=== PATIENT | male | born 1985 | race Hispanic/Latino ===

== ENCOUNTER 2022-02-09 12:34 | Inpatient (IN) | payer OTHER ==
[2022-02-09] MEDS ORDERED: Sterile Water 10 ML ONE (12:47)
[2022-02-09] MEDS ORDERED: Vecuronium 10 MG VIAL ONE (12:47)
[2022-02-09 12:53] LABS: #Basophils 0.1 thou/uL (0.0-0.2); #Eosinphils 0.6 thou/uL (0.0-0.7); #Lymphocytes 5.9 thou/uL (1.20-3.40); #Neutrophils 9.7 thou/uL (1.40-6.50); %Basophils 0.7 % (0.0-1.0); %Eosinophils 3.3 % (0.0-10.0); %Lymphocytes 34.1 % (21.0-51.0); %Monocytes 5.6 % (0.0-10.0); %Neutrophils 56.2 % (42.0-75.0); Hemoglobin 16.4 g/dL (14.0-18.0); Mean Corpuscular HGB CONC 33.1 g/dL (32.0-36.0); Mean Corpuscular Hemoglobin 29.8 pg (27.0-31.0); Mean Corpuscular Volume 90.1 fL (78.0-98.0); Mean Platelet Volume 7.3 fL (7.4-10.4); Platelet Count 311 thou/uL (130-400); Red Blood Cell (RBC) Count 5.49 mill/uL (4.70-6.10); White Blood Cell (WBC) Count 17.3 thou/uL (4.8-10.8)
[2022-02-09 13:04] LABS: PTT 29.8 sec (22.9-36.1); Prothrombin Time 13.2 sec (12.0-14.7)
[2022-02-09] MEDS ORDERED: Promethazine HCl 25 MG/ML VIAL IM PRN (13:17)
[2022-02-09] MEDS ORDERED: hydrALAZINE 20 MG/ML VIAL SLOW IVP PRN (13:17)
[2022-02-09] MEDS ORDERED: Ondansetron PF 4 MG/2 ML Vial IVP PRN (13:17)
[2022-02-09] MEDS ORDERED: Dextrose 5% in Water 1,000 ML IV PRN (13:17)
[2022-02-09] MEDS ORDERED: HumaLOG 300 UNITS/3 ML VIAL SC PRN (13:17)
[2022-02-09] MEDS ORDERED: Dextrose 50% Abboject 50 ML SYRINGE SLOW IVP PRN (13:17)
[2022-02-09] MEDS ORDERED: fentaNYL Citrate/PF 2,000 MCG in Sodium Chloride 0.9% 60 ML IV PRN (13:23)
[2022-02-09 13:27] LABS: Acetaminophen Less than 10.0 mcg/mL (10.0-30.0); Alcohol Less than 10 mg/dL (Less than 10); Salicylate Less than 8.0 mg/dL (15.0-30.0)
[2022-02-09 13:28] LABS: Bacteria/HPF None Seen HPF (None Seen); Bilirubin Negative (Negative); Blood, Urine 3+ (Negative); Clarity Turbid (Clear); Glucose, Urine (Dipstick) Normal (Negative); Ketone, Urine Negative (Negative); Leukocyte Negative Leu/uL (Negative); Nitrite Negative (Negative); Protein, Urine (Dipstick) 200 mg/dL (Neg-Trace); Specific Gravity, Urine 1.022 (1.002-1.036); Squamous Epithelial None Seen HPF (0-3); Urobilinogen Normal mg/dL (Less than 2); WBC/HPF 0-3 HPF (0-3)
[2022-02-09] MEDS ORDERED: Vecuronium 10 MG VIAL IVP SCH (13:30)
[2022-02-09] MEDS ORDERED: Midazolam HCl 2 mg/2 ml Vial SLOW IVP SCH (13:30)
[2022-02-09 13:35] LABS: RBC/HPF 0-3 HPF (0-3); Sperm/HPF 2+ HPF (None Seen)
[2022-02-09 13:35] LABS: Amphetamine Not Detected (NotDetected); Barbiturates Screen Not Detected (NotDetected); Benzodiazepine Screen Not Detected (NotDetected); Cocaine Metabolite Screen Not Detected (NotDetected); Methadone Not Detected (NotDetected); Methamphetamine Not Detected (NotDetected); Opiate Screen Not Detected (NotDetected); Oxycodone Screen Not Detected (NotDetected); Phencyclidine (PCP) Not Detected (NotDetected); THC/Cannabinoid Screen Not Detected (NotDetected); Tricyclic Screen Not Detected (NotDetected)
[2022-02-09 13:38] LABS: ALT (SGPT) 39 U/L (8-55); AST (SGOT) 61 U/L (5-34); Albumin 5.2 g/dL (3.5-5.0); Alkaline Phosphatase 89 U/L (40-110); Anion Gap 23 mmol/L (10-20); BUN (Urea Nitrogen) 14 mg/dL (8.9-20.6); Bilirubin, Total 1.2 mg/dL (0.2-1.2); CK (CPK) 1539 U/L (30-200); Calc. Creatinine Clearance 0 mL/min (70-130); Calcium 9.7 mg/dL (7.8-10.44); Carbon Dioxide 18 mmol/L (22-29); Chloride 106 mmol/L (98-107); Glucose 173 mg/dL (70-105); Lipase 32 U/L (8-78); Potassium 4.1 mmol/L (3.5-5.1); Protein, Total 8.2 g/dL (6.0-8.3); Sodium 142 mmol/L (136-145)
[2022-02-09] MEDS ORDERED: Fentanyl BOLUS 250 ML IVPB PRN (14:00)
[2022-02-09] MEDS ORDERED: fentaNYL Citrate/PF 2,000 MCG in Sodium Chloride 0.9% 60 ML IV SCH (14:00)
[2022-02-09] MEDS ORDERED: Dexmedetomidine In 0.9 % NaCl 100 ML IVPB SCH (14:15)
[2022-02-09 14:17] LABS: Magnesium 1.9 mg/dL (1.6-2.6); Phosphorus 4.5 mg/dL (2.3-4.7)
[2022-02-09] MEDS: Sodium Chloride 0.9% 1,000 ML IV SCH ×2 (14:34→20:36)
[2022-02-09 15:22] LABS: Actual Bicarbonate (HCO3a) 23.4 mEq/L (22-28); Base Excess (BEa) -1.6 mEq/L (-2.0 to +3.0); CO2 Tension 40.6 mmHg (35.0-45.0); Calcium, Ionized (arterial) 1.15 mmol/L (1.12-1.30); Hemoglobin (Hb) 14.9 g/dL (14.0-18.0); O2 Tension (PaO2), arterial 153.5 mmHg (80.0-100.0); Potassium - ABG Lab 3.29 mmol/L (3.70-5.30); pH, Arterial 7.38 (7.35-7.45)
[2022-02-09 15:23] LABS: Puncture Site LRA
[2022-02-09] MEDS: Silver Sulfadiazine 50 GM JAR TP PRN (17:27)
[2022-02-09] MEDS ORDERED: Sodium Chloride 0.9% 1,000 ML IV SCH (18:30)
[2022-02-09] MEDS: Acetaminophen 500 MG TAB PO SCH (20:34)
[2022-02-09] MEDS: Famotidine/PF 20 mg/2ml Vial SLOW IVP SCH (20:34)
[2022-02-09 21:58] LABS: Amphetamine Not Detected (NotDetected); Barbiturates Screen Not Detected (NotDetected); Benzodiazepine Screen Not Detected (NotDetected); Cocaine Metabolite Screen Not Detected (NotDetected); Methadone Not Detected (NotDetected); Methamphetamine Not Detected (NotDetected); Opiate Screen Not Detected (NotDetected); Oxycodone Screen Not Detected (NotDetected); Phencyclidine (PCP) Not Detected (NotDetected); THC/Cannabinoid Screen Not Detected (NotDetected); Tricyclic Screen Not Detected (NotDetected)
[2022-02-10] MEDS: Acetaminophen 500 MG TAB PO SCH ×2 (02:32→08:35)
[2022-02-10 04:55] LABS: #Eosinphils 0.1 thou/uL (0.0-0.7); #Lymphocytes 1.7 thou/uL (1.20-3.40); #Monocytes 0.9 thou/uL (0.11-0.59); #Neutrophils 7.6 thou/uL (1.40-6.50); %Basophils 0.3 % (0.0-1.0); %Eosinophils 1.1 % (0.0-10.0); %Lymphocytes 16.5 % (21.0-51.0); %Monocytes 8.5 % (0.0-10.0); %Neutrophils 73.6 % (42.0-75.0); Hemoglobin 12.9 g/dL (14.0-18.0); Mean Corpuscular HGB CONC 33.6 g/dL (32.0-36.0); Mean Corpuscular Hemoglobin 30.5 pg (27.0-31.0); Mean Corpuscular Volume 90.6 fL (78.0-98.0); Mean Platelet Volume 7.2 fL (7.4-10.4); Platelet Count 173 thou/uL (130-400); RBC Distribution Width 11.9 % (11.5-14.5); Red Blood Cell (RBC) Count 4.24 mill/uL (4.70-6.10); White Blood Cell (WBC) Count 10.4 thou/uL (4.8-10.8)
[2022-02-10 04:58] LABS: INR-International Normal Ratio 1.1; PTT 37.2 sec (22.9-36.1); Prothrombin Time 14.4 sec (12.0-14.7)
[2022-02-10 05:21] LABS: Phosphorus 2.5 mg/dL (2.3-4.7)
[2022-02-10 05:22] LABS: Anion Gap 10 mmol/L (10-20); BUN (Urea Nitrogen) 8 mg/dL (8.9-20.6); Calc. Creatinine Clearance 211 mL/min (70-130); Calcium 8.3 mg/dL (7.8-10.44); Carbon Dioxide 25 mmol/L (22-29); Chloride 109 mmol/L (98-107); Glucose 93 mg/dL (70-105); Magnesium 1.8 mg/dL (1.6-2.6); Potassium 3.6 mmol/L (3.5-5.1); Sodium 140 mmol/L (136-145)
[2022-02-10 05:28] VITALS: BMI 32.3
[2022-02-10 05:29] LABS: CK (CPK) 10001 U/L (30-200)
[2022-02-10 06:03] LABS: Lactic Acid 0.8 mmol/L (0.5-2.2)
[2022-02-10] MEDS ORDERED: PHOS-NAK 1 PKT PACK PO SCH (08:00)
[2022-02-10] MEDS ORDERED: Potassium Chloride 20 MEQ TAB PO SCH (08:00)
[2022-02-10] MEDS ORDERED: Magnesium 2 GM/50 ML(in water) 2 GM in Premix Bag 1 BAG IVPB SCH (08:00)
[2022-02-10] MEDS: Famotidine/PF 20 mg/2ml Vial SLOW IVP SCH ×2 (08:31→21:22)
[2022-02-10] MEDS: Sodium Chloride 0.9% 1,000 ML IV SCH ×3 (08:37→19:49)
[2022-02-10] MEDS: Acetaminophen 325 MG TAB PO SCH ×3 (10:39→21:17)
[2022-02-10] MEDS: Acetaminophen/Codeine 30-300mg Tablet PO PRN ×2 (11:08→17:37)
[2022-02-10] MEDS: Cyclobenzaprine 10 MG TAB PO PRN ×2 (11:08→19:52)
[2022-02-10] MEDS: Gabapentin 100 MG CAP PO SCH ×2 (15:11→21:18)
[2022-02-10] MEDS: Silver Sulfadiazine 50 GM JAR TP PRN (20:08)
[2022-02-10] MEDS: Senokot S 8.6-50 MG TAB PO SCH (21:18)
[2022-02-11] MEDS: Sodium Chloride 0.9% 1,000 ML IV SCH ×3 (02:07→18:25)
[2022-02-11] MEDS: Acetaminophen 325 MG TAB PO SCH ×3 (05:08→18:26)
[2022-02-11 05:26] LABS: #Eosinphils 0.4 thou/uL (0.0-0.7); #Lymphocytes 1.9 thou/uL (1.20-3.40); #Monocytes 0.7 thou/uL (0.11-0.59); %Basophils 0.3 % (0.0-1.0); %Eosinophils 4.7 % (0.0-10.0); %Monocytes 9.2 % (0.0-10.0); %Neutrophils 61.8 % (42.0-75.0); Hemoglobin 12.6 g/dL (14.0-18.0); Mean Corpuscular HGB CONC 32.1 g/dL (32.0-36.0); Mean Corpuscular Hemoglobin 29.2 pg (27.0-31.0); Mean Corpuscular Volume 90.9 fL (78.0-98.0); Mean Platelet Volume 7.5 fL (7.4-10.4); Platelet Count 170 thou/uL (130-400); Red Blood Cell (RBC) Count 4.31 mill/uL (4.70-6.10)
[2022-02-11 05:41] LABS: Anion Gap 10 mmol/L (10-20); BUN (Urea Nitrogen) 8 mg/dL (8.9-20.6); Calc. Creatinine Clearance 213 mL/min (70-130); Calcium 8.1 mg/dL (7.8-10.44); Carbon Dioxide 26 mmol/L (22-29); Chloride 110 mmol/L (98-107); Estimated GFR 119; Glucose 85 mg/dL (70-105); Magnesium 1.9 mg/dL (1.6-2.6); Phosphorus 2.4 mg/dL (2.3-4.7); Potassium 3.8 mmol/L (3.5-5.1); Sodium 142 mmol/L (136-145)
[2022-02-11 06:09] LABS: CK (CPK) 12029 U/L (30-200)
[2022-02-11] MEDS: Gabapentin 100 MG CAP PO SCH ×2 (08:01→15:49)
[2022-02-11] MEDS: Famotidine/PF 20 mg/2ml Vial SLOW IVP SCH (08:02)
[2022-02-11] MEDS: Senokot S 8.6-50 MG TAB PO SCH (08:02)
[2022-02-11] MEDS: Acetaminophen/Codeine 30-300mg Tablet PO PRN ×2 (08:06→15:48)
[2022-02-11] MEDS ORDERED: Polyethylene Glycol 3350 17 GM Packet PO SCH (09:00)
[2022-02-11] MEDS: Cyclobenzaprine 10 MG TAB PO PRN (11:00)
[2022-02-11] MEDS ORDERED: traMADol HCl 50 MG TAB PO SCH (12:15)
[2022-02-11 15:46] VITALS: BP 134/89; TEMP 98.4
== END 2022-02-11 18:05 | disposition home or self-care (01) | DRG 928 ==
LOC: ERS 12:34 → CCU 12:45 → SJJU 02-10 17:58
PROVIDERS: ADMIT Surgery; ATTEND Surgery
PROC: 5A1935Z Respiratory Ventilation, Less than 24 Consecutive Hours (ICD-10-PCS; principal; 2022-02-09)
PROC: 02HV33Z Insertion of Infusion Device into Superior Vena Cava, Percutaneous Approach (ICD-10-PCS; 2022-02-09)
PROC: 0B918ZZ Drainage of Trachea, Via Natural or Artificial Opening Endoscopic (ICD-10-PCS; 2022-02-09)
PROC: 3E0G76Z Introduction of Nutritional Substance into Upper GI, Via Natural or Artificial Opening (ICD-10-PCS; 2022-02-09)
DX: T22.221A Burn of second degree of right elbow, initial encounter (principal); J96.00 Acute respiratory failure, unspecified whether with hypoxia or hypercapnia; I46.8 Cardiac arrest due to other underlying condition; T31.11 Burns involving 10-19% of body surface with 10-19% third degree burns; E87.2 Acidosis; T75.4XXA Electrocution, initial encounter; Z20.822 Contact with and (suspected) exposure to COVID-19; T79.6XXA Traumatic ischemia of muscle, initial encounter; F17.210 Nicotine dependence, cigarettes, uncomplicated; W85.XXXA Exposure to electric transmission lines, initial encounter; T21.24XA Burn of second degree of lower back, initial encounter; T25.221A Burn of second degree of right foot, initial encounter; T21.21XA Burn of second degree of chest wall, initial encounter; Z90.89 Acquired absence of other organs; Y92.22 Religious institution as the place of occurrence of the external cause; Z23 Encounter for immunization
CPT/HCPCS: 31624; 36415; 36600; 43762; 51701; 70450; 71045; 72072; 72100; 72125; 80048; 80053; 80306; 80307; 81003; 81015; 82550; 82805; 83605; 83690; 83735; 83880; 84100; 84146; 84484; 85025; 85610; 85730; 86850; 86900; 86901; 90471; 93005; 94002; 94640; 96365; 96375; 96376; 97139; G0390; J2405; J3475; J3490; J7050; J7620; P9045; S0028; U0003; U0005

== ENCOUNTER 2022-04-21 12:59 | Outpatient (CLI) | payer OTHER | END 2022-04-21 13:00 | disposition home or self-care (01) | LOC: SCSMRI 12:59 | PROVIDERS: ATTEND Family Medicine | DX: M25.511 Pain in right shoulder (principal); T75.4XXA Electrocution, initial encounter; S43.004A Unspecified dislocation of right shoulder joint, initial encounter; S43.431A Superior glenoid labrum lesion of right shoulder, initial encounter; S46.911A Strain of unspecified muscle, fascia and tendon at shoulder and upper arm level, right arm, initial encounter ==

== ENCOUNTER 2022-06-15 16:04 | Outpatient (CLI) | payer SELFPAY ==
[2022-06-15 16:48] LABS: #Basophils 0.1 10x3/uL (0.0-0.2); #Eosinphils 0.5 10x3/uL (0.0-0.5); #Monocytes 0.7 10x3/uL (0.0-1.1); #Neutrophils 5.3 10x3/uL (1.5-8.4); %Basophils 0.9 % (0.0-2.0); %Monocytes 7.8 % (0.0-10.0); Hemoglobin 16.1 g/dL (13.5-17.5); Mean Corpuscular HGB CONC 35.5 g/dL (32.0-36.0); Mean Corpuscular Hemoglobin 29.4 pg (27.0-33.0); Mean Corpuscular Volume 82.8 fl (81.2-95.1); Mean Platelet Volume 9.4 fl (7.4-10.4); Platelet Count 316 10x3/uL (150-450); RBC Distribution Width 11.9 % (11.5-14.5); Red Blood Cell (RBC) Count 5.47 10x6/uL (4.32-5.72); White Blood Cell (WBC) Count 9.1 10x3/uL (3.5-10.5)
== END 2022-06-15 16:05 | disposition home or self-care (01) ==
LOC: LABBT 16:04
PROVIDERS: ATTEND Orthopaedic Surgery
DX: Z01.812 Encounter for preprocedural laboratory examination (principal)
CPT/HCPCS: 85025

== ENCOUNTER 2022-08-18 15:57 | Outpatient (CLI) | payer SELFPAY ==
[2022-08-18 16:44] LABS: #Basophils 0.1 10x3/uL (0.0-0.2); #Eosinphils 0.4 10x3/uL (0.0-0.5); #Monocytes 0.9 10x3/uL (0.0-1.1); %Basophils 0.8 % (0.0-2.0); %Eosinophils 3.4 % (0.0-6.0); %Lymphocytes 30.6 % (18.0-47.0); %Monocytes 8.5 % (0.0-10.0); %Neutrophils 56.3 % (40.0-75.0); Hemoglobin 15.1 g/dL (13.5-17.5); Mean Corpuscular HGB CONC 35.2 g/dL (32.0-36.0); Mean Corpuscular Hemoglobin 29.7 pg (27.0-33.0); Mean Corpuscular Volume 84.4 fl (81.2-95.1); Mean Platelet Volume 9.5 fl (7.4-10.4); Platelet Count 313 10x3/uL (150-450); RBC Distribution Width 12.9 % (11.5-14.5); Red Blood Cell (RBC) Count 5.08 10x6/uL (4.32-5.72); White Blood Cell (WBC) Count 10.6 10x3/uL (3.5-10.5)
== END 2022-08-18 15:58 | disposition home or self-care (01) ==
LOC: LABBT 15:57
PROVIDERS: ATTEND Orthopaedic Surgery
DX: Z01.812 Encounter for preprocedural laboratory examination (principal); S46.811A Strain of other muscles, fascia and tendons at shoulder and upper arm level, right arm, initial encounter; S46.211A Strain of muscle, fascia and tendon of other parts of biceps, right arm, initial encounter
CPT/HCPCS: 85025

== ENCOUNTER 2022-08-20 06:50 | Day surgery (SDC) | payer OTHER ==
[2022-08-19 15:14] VITALS: BMI 33.5
[2022-08-20] MEDS ORDERED: Midazolam HCl 2 mg/2 ml Vial ONE (07:48)
[2022-08-20] MEDS ORDERED: Fentanyl 100 MCG/2 ML VIAL ONE ×3 (07:48→12:02)
[2022-08-20] MEDS ORDERED: Bupivacaine PF 0.5% 30 ML VIAL ONE ×2 (07:48→09:43)
[2022-08-20] MEDS ORDERED: Acetaminophen 500 MG TAB ONE (09:07)
[2022-08-20] MEDS ORDERED: Fentanyl 250 MCG/5 ML VIAL ONE (09:28)
[2022-08-20] MEDS ORDERED: HYDROmorphone 0.5 MG/0.5 ML SYRINGE ONE ×4 (09:29→13:04)
[2022-08-20] MEDS ORDERED: EPINEPHrine 1 MG/ML AMP ONE (09:43)
[2022-08-20] MEDS ORDERED: CEFAZOLIN 2 GM VIAL ONE (09:43)
[2022-08-20] MEDS ORDERED: Sodium Chloride 0.9% 100 ML ONE (09:43)
[2022-08-20] MEDS ORDERED: PROPOFOL 200 MG/20 ML VIAL ONE (09:50)
[2022-08-20] MEDS ORDERED: Ketorolac Tromethamine 30 MG/ML VIAL ONE (09:50)
[2022-08-20] MEDS ORDERED: Ondansetron PF 4 MG/2 ML Vial ONE (09:50)
[2022-08-20] MEDS ORDERED: Dexamethasone 20 MG/5 ML VIAL ONE (09:50)
[2022-08-20] MEDS ORDERED: Rocuronium Bromide 10 MG/ML (10ML VIAL) ONE (09:50)
[2022-08-20] MEDS ORDERED: Lidocaine 1% PF 5 ML VIAL ONE (09:50)
[2022-08-20] MEDS ORDERED: Ketamine 50 MG/ML (10ML VIAL) ONE (10:14)
[2022-08-20] MEDS ORDERED: Meperidine HCl/PF 25 MG/ML VIAL ONE (12:01)
[2022-08-20] MEDS ORDERED: oxyCODONE 5 MG TAB PO PRN (14:13)
[2022-08-20] MEDS ORDERED: Morphine 4 MG/ML VIAL SLOW IVP PRN (14:15)
[2022-08-20] MEDS ORDERED: Promethazine HCl 6.25 MG in Sodium Chloride 0.9% 50 ML IVPB SCH (14:30)
[2022-08-20] MEDS ORDERED: Ondansetron PF 4 MG/2 ML Vial IVP SCH (14:30)
== END 2022-08-20 14:55 | disposition home or self-care (01) ==
LOC: SDC 06:50
PROVIDERS: ATTEND Orthopaedic Surgery
PROC: 0LM10ZZ Reattachment of Right Shoulder Tendon, Open Approach (ICD-10-PCS; principal; 2022-08-20)
DX: S46.011A Strain of muscle(s) and tendon(s) of the rotator cuff of right shoulder, initial encounter (principal); S46.211A Strain of muscle, fascia and tendon of other parts of biceps, right arm, initial encounter; S43.401A Unspecified sprain of right shoulder joint, initial encounter; W86.8XXA Exposure to other electric current, initial encounter; Y99.0 Civilian activity done for income or pay
CPT/HCPCS: C1713; J0171; J1100; J1170; J1885; J2175; J2250; J2405; J2704; J3010; J3490; S0020

== ENCOUNTER 2022-11-10 09:46 | Outpatient (CLI) | payer OTHER | END 2022-11-10 09:47 | disposition home or self-care (01) | LOC: TBSIIMAG 09:46 | PROVIDERS: ATTEND Family Medicine | DX: T75.4XXA Electrocution, initial encounter (principal) ==